=== PATIENT | male | born 1980 | race Caucasian/White ===

== ENCOUNTER 2023-12-18 15:37 | Emergency (ER) | payer MEDICAID, OTHER ==
[~2023-12-18] VITALS: Ht 175.3 cm; Wt 103.0 kg
[2023-12-18 15:39] VITALS: O2SAT 99
[2023-12-18] MEDS: IBUPROFEN 600MG TABLET PO STA (16:17)
[2023-12-18] MEDS ORDERED: IBUP-2029 MT (17:12)
[2023-12-18 17:24] VITALS: BP 127/72; PULSE 85; RESP 16; TEMP 98.1
== END 2023-12-18 17:35 | disposition home or self-care (01) ==
LOC: ER 15:37
DX: S09.90XA Unspecified injury of head, initial encounter (principal); E11.9 Type 2 diabetes mellitus without complications; I10 Essential (primary) hypertension; W18.39XA Other fall on same level, initial encounter; Y93.89 Activity, other specified; Y92.89 Other specified places as the place of occurrence of the external cause; Y99.8 Other external cause status
CPT/HCPCS: 70450; 93005; 99284; Z7610 ×3

== ENCOUNTER 2024-01-20 21:03 | Emergency (ER) | payer MEDICAID ==
[~2024-01-20] VITALS: Ht 175.3 cm; Wt 99.0 kg
[~2024-01-20 21:03] MED LIST: IBUP-2029 MT
[2024-01-20 21:35] VITALS: O2SAT 99
[2024-01-20] MEDS: KETOROLAC 30MG/ML VIAL IM ONE (22:06)
[2024-01-20] MEDS ORDERED: IBUP-2030 MT (23:01)
[2024-01-20 23:11] VITALS: BP 132/64; PULSE 66; RESP 18; TEMP 97.8
== END 2024-01-20 23:12 | disposition home or self-care (01) ==
LOC: ER 21:03
DX: R51.9 Headache, unspecified (principal); E11.9 Type 2 diabetes mellitus without complications; I10 Essential (primary) hypertension; Z90.49 Acquired absence of other specified parts of digestive tract
CPT/HCPCS: 99283; 96372; J1885

== ENCOUNTER 2024-02-28 04:20 | Emergency (ER) | payer MEDICAID ==
[~2024-02-28] VITALS: Ht 175.3 cm; Wt 100.0 kg
[~2024-02-28 04:20] MED LIST changes: +IBUP-2030 MT
[2024-02-28 04:41] VITALS: O2SAT 99
[2024-02-28 04:45] VITALS: BP 120/75; PULSE 87; RESP 16; TEMP 97.9; O2SAT 99
[2024-02-28] MEDS: LIDOCAINE 5% PATCH TOP SCH (05:50)
== END 2024-02-28 09:43 | disposition home or self-care (01) ==
LOC: ER 04:28
DX: M54.50 Low back pain, unspecified (principal); R07.81 Pleurodynia; I10 Essential (primary) hypertension; E11.9 Type 2 diabetes mellitus without complications; Z90.49 Acquired absence of other specified parts of digestive tract; W18.30XA Fall on same level, unspecified, initial encounter; Y93.89 Activity, other specified; Y92.89 Other specified places as the place of occurrence of the external cause; Y99.8 Other external cause status
CPT/HCPCS: 71046; 99283